=== PATIENT | female | born 1945 | race Caucasian/White ===

== ENCOUNTER 2018-03-08 10:18 | Emergency (ER) | payer MEDICARE, OTHER ==
[~2018-03-08] VITALS: Ht 165.1 cm; Wt 108.0 kg
[~2018-03-08 10:18] MED LIST: ATOR10TA70 PO; CARV-50 PO; DULO-31 PO; LEVO175T2 PO; LORA1TAB PO
[2018-03-08 10:45] VITALS: BP 108/68
== END 2018-03-08 12:29 | disposition home or self-care (01) ==
LOC: ER 10:18
DX: S52.521A Torus fracture of lower end of right radius, initial encounter for closed fracture (principal); I10 Essential (primary) hypertension; G89.29 Other chronic pain; F17.200 Nicotine dependence, unspecified, uncomplicated; Z98.84 Bariatric surgery status; Z86.711 Personal history of pulmonary embolism; Z85.3 Personal history of malignant neoplasm of breast; Z90.710 Acquired absence of both cervix and uterus; Z88.0 Allergy status to penicillin; Z88.8 Allergy status to other drugs, medicaments and biological substances; Z79.899 Other long term (current) drug therapy; W18.39XA Other fall on same level, initial encounter; Y93.89 Activity, other specified; Y92.89 Other specified places as the place of occurrence of the external cause; Y99.8 Other external cause status
CPT/HCPCS: 29125; 73110; 99284

== ENCOUNTER 2018-03-17 13:00 | Outpatient (CLI) | payer MEDICARE, OTHER ==
[2018-03-17 13:00] VITALS: BP 114/59
== END 2018-03-17 14:02 | disposition home or self-care (01) ==
LOC: ORTHO 13:00
PROVIDERS: ATTEND Nurse Practitioner Family
DX: S52.502A Unspecified fracture of the lower end of left radius, initial encounter for closed fracture (principal); S52.615A Nondisplaced fracture of left ulna styloid process, initial encounter for closed fracture; I10 Essential (primary) hypertension; G89.29 Other chronic pain; Z88.0 Allergy status to penicillin; Z88.8 Allergy status to other drugs, medicaments and biological substances; Z85.3 Personal history of malignant neoplasm of breast; Z90.710 Acquired absence of both cervix and uterus; X58.XXXA Exposure to other specified factors, initial encounter; Y93.89 Activity, other specified; Y92.89 Other specified places as the place of occurrence of the external cause; Y99.8 Other external cause status
CPT/HCPCS: 73110

== ENCOUNTER 2018-04-08 12:57 | Outpatient (CLI) | payer MEDICARE, OTHER ==
[2018-04-08 13:07] VITALS: BP 96/50
== END 2018-04-08 13:32 | disposition home or self-care (01) ==
LOC: ORTHO 12:57
PROVIDERS: ATTEND Nurse Practitioner Family
DX: S52.614G Nondisplaced fracture of right ulna styloid process, subsequent encounter for closed fracture with delayed healing (principal); S52.501D Unspecified fracture of the lower end of right radius, subsequent encounter for closed fracture with routine healing; I10 Essential (primary) hypertension; J44.9 Chronic obstructive pulmonary disease, unspecified; F17.200 Nicotine dependence, unspecified, uncomplicated; E07.9 Disorder of thyroid, unspecified; Z72.89 Other problems related to lifestyle; Z88.0 Allergy status to penicillin; Z88.8 Allergy status to other drugs, medicaments and biological substances; X58.XXXD Exposure to other specified factors, subsequent encounter
CPT/HCPCS: 73110

== ENCOUNTER 2018-04-28 10:56 | Outpatient (CLI) | payer MEDICARE, OTHER ==
[~2018-04-28] VITALS: Ht 165.1 cm; Wt 235.0 kg
[2018-04-28 10:53] VITALS: BP 86/48
== END 2018-04-28 11:25 | disposition home or self-care (01) ==
LOC: ORTHO 10:56
PROVIDERS: ATTEND Nurse Practitioner Family
DX: S52.592G Other fractures of lower end of left radius, subsequent encounter for closed fracture with delayed healing (principal); S52.615G Nondisplaced fracture of left ulna styloid process, subsequent encounter for closed fracture with delayed healing; M85.80 Other specified disorders of bone density and structure, unspecified site; F17.210 Nicotine dependence, cigarettes, uncomplicated; I10 Essential (primary) hypertension; Z85.3 Personal history of malignant neoplasm of breast; Z88.0 Allergy status to penicillin; Z88.8 Allergy status to other drugs, medicaments and biological substances; W19.XXXD Unspecified fall, subsequent encounter
CPT/HCPCS: 73110; 99213

== ENCOUNTER → 2021-04-20 | Outpatient (CLI) | payer MEDICARE ==
[~2021-04-20] VITALS: Ht 165.1 cm; Wt 110.0 kg
[2021-04-20] VITALS (15 sets, daily range): BP systolic 109–152; BP diastolic 49–74
[~2021-04-20] MED LIST changes: +aminophylline 250mg/10ml inj. IV PRN; +metoprolol tartrate 1mg/ml inj IV PRN; +nitroGLYCERIN 0.4mg SUBLingual tab SL PRN; +regadenoson 0.4mg/5ml syringe IV ONE; +regadenoson 0.4mg/5ml syringe IV PRN
== END | disposition home or self-care (01) ==
LOC: RAD 08:57
PROVIDERS: ATTEND Internal Medicine Cardiovascular Disease
DX: R00.0 Tachycardia, unspecified (principal)
CPT/HCPCS: 78452; 93017; A9500; J0280; J2785

== ENCOUNTER 2025-08-08 08:17 | Outpatient (CLI) | payer MEDICARE ==
[2025-08-08] VITALS (9 sets, daily range): BP systolic 114–133; BP diastolic 34–45; PULSE 72–87; RESP 16; O2SAT 94–98
[~2025-08-08 08:17] MED LIST changes: -aminophylline 250mg/10ml inj. IV PRN; -metoprolol tartrate 1mg/ml inj IV PRN; -nitroGLYCERIN 0.4mg SUBLingual tab SL PRN; -regadenoson 0.4mg/5ml syringe IV ONE; -regadenoson 0.4mg/5ml syringe IV PRN
[2025-08-08] MEDS ORDERED: aminophylline 250mg/10ml inj. IV ONE (09:35)
[2025-08-08] MEDS: regadenoson 0.4mg/5ml syringe IV ONE (09:44)
--- NOTE | 2025-08-08 11:14 | RADIOLOGY REPORT ---
Procedure: [facility] JO SCAN Exam Date: 08/08/2025 09:08 AM Reason for study/Clinical History: SHORTNESS OF BREATH;FATIGUE;PALPITATIONS Comparison Study: [place] JO SCAN on DOS: 04/20/21 Myocardial Perfusion Study with SPECT Technique: The patient received an intravenous injection of 8 mCi of technetium-99m sestamibi while at rest. After a short delay, SPECT tomographic images of the heart were obtained. The patient then went to the stress lab where they received an intravenous infusion of 0.4 mg lexiscan utilizing nori dard protocol. 35. mCi of technetium-99m sestamibi was injected intravenously immediately after the start of the lexiscan infusion. Gated SPECT tomographic images of the heart were acquired and processed. Findings: No reversible perfusion defect. End diastolic volume: 78 mL End systolic volume: 16 mL The left ventricular ejection fraction is 80 %. (normal greater than 50%) Impression: No reversible defect. The left ventricular ejection fraction is 80 %.
== END 2025-08-08 23:59 | disposition home or self-care (01) ==
LOC: RAD 08:17
PROVIDERS: ATTEND Internal Medicine Cardiovascular Disease
DX: R06.02 Shortness of breath (principal); R53.83 Other fatigue; R00.2 Palpitations
CPT/HCPCS: 78452; 93017; A9500; J2785; J0280